=== PATIENT | female | born 1955 | race Caucasian/White ===

== ENCOUNTER 2020-04-15 10:49 | Outpatient (CLI) | payer MEDICARE, BC, SELFPAY ==
--- NOTE | 2020-04-15 10:56 | MM_ITS ---
WS: [id number] DIAGNOSTIC BILATERAL DIGITAL MAMMOGRAM WITH CAD HISTORY: HX OF BREAST CA COMPARISON: 03/17/2019 and 01/08/2018 TECHNIQUE: Bilateral craniocaudad, mediolateral oblique, and mediolateral views are submitted. Comput er aided detection utilized. Breast composition: There are scattered areas of fibroglandular density. Volume loss with architectur al distortion and dystrophic calcifications in the LEFT breast. Corresponds to the area of prior biop sy and therapy treatment. No worsening distortion or increasing soft tissue mass. No suspicious calci fication or mass in the RIGHT breast. MM/[id number] IMPRESSION: BI-RADS: 2-Benign FOLLOW UP: 1 Year Follow-up
== END 2020-04-15 10:50 | disposition home or self-care (01) ==
LOC: RADSHAW 10:54
PROVIDERS: PCP Registered Nurse; Visit Provider Registered Nurse
DX: Z85.3 Personal history of malignant neoplasm of breast (principal)
CPT/HCPCS: 77066

== ENCOUNTER → 2020-05-24 09:36 | Outpatient (BNVA) | payer MEDICARE, BC, SELFPAY | PROVIDERS: PCP Registered Nurse; Visit Provider Registered Nurse | DX: E03.9 Hypothyroidism, unspecified (principal) | CPT/HCPCS: 36415; 80053; 80061; 84443; 85025 ==

== ENCOUNTER → 2020-12-07 09:20 | Outpatient (BNVA) | payer MEDICARE, OTHER, SELFPAY | PROVIDERS: PCP Registered Nurse; Visit Provider Registered Nurse | DX: E03.9 Hypothyroidism, unspecified (principal) | CPT/HCPCS: 84443 ==

== ENCOUNTER 2021-06-14 13:04 | Outpatient (CLI) | payer MEDICARE, OTHER, SELFPAY ==
--- NOTE | 2021-06-14 13:17 | MM_ITS ---
WS: [id number] BILATERAL DIGITAL DIAGNOSTIC MAMMOGRAM MAMMOGRAPHY WITH CAD CLINICAL INFORMATION: HX OF BREAST CA COMPARISON: April 15, 2020 TECHNIQUE: Bilateral CC, MLO, and ML views. FINDINGS: Scattered fibroglandular densities bilaterally. Punctate and dystrophic calcifications. Postoperative changes lumpectomy upper-outer left breast parenchymal fibrosis unchanged from previous. Dense nodul ar parenchymal tissue upper outer right breast stable since 2018. No suspicious focal mass, asymmetry, calcifications, or architectural distortion. No evidence of mildred gnancy. MM/[place] [id number] IMPRESSION: BI-RADS: 2-Benign FOLLOW UP: 1 Year Follow-up Recommend return to annual diagnostic mammography.
== END 2021-06-14 13:05 | disposition home or self-care (01) ==
LOC: RADSHAW 13:11
PROVIDERS: PCP Registered Nurse; Visit Provider Registered Nurse
DX: Z85.3 Personal history of malignant neoplasm of breast (principal)
CPT/HCPCS: 77066

== ENCOUNTER → 2021-09-15 09:16 | Outpatient (BNVA) | payer MEDICARE, OTHER, SELFPAY | PROVIDERS: PCP Registered Nurse; Visit Provider Surgery | DX: Z11.52 Encounter for screening for COVID-19 (principal) | CPT/HCPCS: 87635 ==

== ENCOUNTER 2021-09-20 07:54 | Day surgery (SDC) | payer MEDICARE, OTHER, SELFPAY ==
[2021-09-18 09:55] VITALS: BMI 22.4
[2021-09-20 09:36] VITALS: BP 146/79; PULSE 68; RESP 18; TEMP 36.1; O2SAT 99
--- NOTE | 2021-09-20 09:37 | P.ANESASSM_ITS ---
Pre-Anesthetic Assessment Height/Weight: Height 1.57 m Weight 55.792 kg Preop Diagnosis: diagnostic Operation Date: 09/20/21 09:30 Proposed Procedures p Colonoscopy 70836 Z12.11(Not Applicable) - Adin Moreland MD Familial anesthetic complications: None Was Beta Awa taken within 24 hours: N/A Was Clonidine taken within 24 hours: N/A Social No alcohol and No tobacco Exam alert, oriented x 3, clear to auscultation bilaterally and regular rate & rhythm Airway Submandibular: within normal limits Cervical ROM: within normal limits Mallampati: Class I Dentition: full History/ROS No significant complaints Pulmonary None reported CV/HEM None reported None reported Hepatic None reported GI None reported Metabolic Thyroid Disease Musc/skel None reported Neuropsych None reported Anesthetic Plan ASA status: 1 Other: I discussed with the patient risks, goals, and benefits of MAC and general anesthesia. We discussed spectrum of MAC anesthesia including conversion to general as well as possibility of recall of intraoperative stimuli including discomfort/pain. Patient agrees to proceed with MAC. Risk of > 500 ml blood loss (7ml/kg in children): No Medications/Allergies Home Medications Medication Instructions Recorded Confirmed Last Taken Type levothyroxine 125 mcg capsule 125 mcg PO DAILY #90 cap 12/07/20 09/20/21 09/19/21 Rx fluticasone propionate 50 1 spray INTRANASAL Q12H #16 g 06/25/21 09/20/21 09/06/21 Rx mcg/actuation nasal spray,suspension (Flonase Allergy Relief) Allergies Allergy/AdvReac Type Severity Reaction Status Date / Time No Known Allergies Allergy Verified 06/20/21 13:56 [facility] Anesthesia Medical History Hypothyroidism Social History Smoking and tobacco status: never smoked Alcohol intake: never Adopted: No Caregiver/support person: No Lives independently: No Household members: spouse Marital status: service: No Current occupational status: retired History of recent travel: No Sexually active: Yes Current gender identity: Female Data Anesthesia Cardiac Studies: No Data to Display
[2021-09-20] MEDS: sodium chloride 0.9% 1,000 ML 30 ML IV (09:48)
--- NOTE | 2021-09-20 10:26 | P.HP_ITS ---
Same Day Surgery H&P Indication for Procedure/HPI DATE OF PROCEDURE: September 20, 2021 CHIEF COMPLAINT/INDICATIONFOR SURGICAL PROCEDURE: Screening colonoscopy PREOP DIAGNOSIS: diagnostic PLANNED PROCEDURE: Operation Date: 09/20/21 09:30 Proposed Procedures p Colonoscopy 24402 Z12.11(Not Applicable) - Adin Moreland MD Medications/Allergies* Allergies/Adverse Reactions Allergy/AdvReac Type Severity Reaction Status Date / Time No Known Allergies Allergy Verified 06/20/21 13:56 Current Medications: Generic Name Dose Route Start Last Admin Trade Name Freq PRN Reason Stop Dose Admin Sodium Chloride 1,000 mls @ 30 mls/hr 09/20/21 08:15 09/20/21 09:48 Sodium Chloride 0.9% IV 09/21/21 08:14 30 mls/hr .Q24H YAMILETH Administration Pertinent History/Comorbid Conditions* Medical History (Updated 06/21/21 @ 13:39 by MAT Cervantes) Hypothyroidism Social History Smoking and tobacco status: never smoked Alcohol intake: never Adopted: No Caregiver/support person: No Lives independently: No Household members: spouse Marital status: service: No Current occupational status: retired History of recent travel: No Sexually active: Yes Current gender identity: Female Pertinent Exam Findings alert, oriented x 3 and regular rate & rhythm Recommendations Surgery/Procedure today Coding Level of Care Code Acute [employer] for Tiffani Carey
[2021-09-20 11:02] VITALS: BP 115/75; PULSE 73; RESP 16; TEMP 36.3; O2SAT 96
--- NOTE | 2021-09-20 11:07 | ANE.PACU2 ---
Documented by User: Konstantin Haywood CRNA 09/20/21 11:07 Inpatient post-anesthesia follow up: Airway intact: Yes Vital signs: Temperature 97 F Pulse Rate 68 Respiratory Rate 18 Blood Pressure 146/79 Pulse Oximetry 99 Oxygen Delivery Me thod Room Air Oxygen Flow Rate Fraction of Inspir ed Oxygen Hydration adequate: Yes Nausea and vomiting: No Pain level: 1 Mental status: Baseline
[2021-09-20 11:12] VITALS: BP 124/71; PULSE 65; RESP 20; TEMP 36.3; O2SAT 98
== END 2021-09-20 11:21 | disposition home or self-care (01) ==
PROVIDERS: PCP Registered Nurse; Visit Provider Surgery
PROC: 0DJD8ZZ Inspection of Lower Intestinal Tract, Via Natural or Artificial Opening Endoscopic (ICD-10-PCS; CPT 45378; principal; 2021-09-20 09:30)
DX: Z12.11 Encounter for screening for malignant neoplasm of colon (principal); D12.2 Benign neoplasm of ascending colon; K64.8 Other hemorrhoids; E03.9 Hypothyroidism, unspecified
CPT/HCPCS: 45380; 88305; J2704; J7030

== ENCOUNTER → 2022-01-18 08:34 | Outpatient (BNVA) | payer MEDICARE, OTHER, SELFPAY | PROVIDERS: PCP Registered Nurse; Visit Provider Registered Nurse | DX: E03.9 Hypothyroidism, unspecified (principal); E07.9 Disorder of thyroid, unspecified; R03.0 Elevated blood-pressure reading, without diagnosis of hypertension | CPT/HCPCS: 85025 ==

== ENCOUNTER → 2022-01-23 10:15 | Outpatient (BNVA) | payer MEDICARE, OTHER, SELFPAY | PROVIDERS: PCP Registered Nurse; Visit Provider Registered Nurse | DX: E03.9 Hypothyroidism, unspecified (principal); E07.9 Disorder of thyroid, unspecified | CPT/HCPCS: 80053; 80061; 84443; 85025 ==

== ENCOUNTER 2022-07-09 08:32 | Outpatient (CLI) | payer MEDICARE, OTHER, SELFPAY ==
--- NOTE | 2022-07-09 08:49 | MM_ITS ---
WS: [id number] DIAGNOSTIC BILATERAL DIGITAL BREAST TOMOSYNTHESIS MAMMOGRAPHY WITH CAD HISTORY: Diagnostic annual mammogram, history of breast cancer. COMPARISON: 06/14/2021 and 04/15/2020 TECHNIQUE: Bilateral craniocaudad, mediolateral oblique, and mediolateral views are submitted with to mosynthcharan and SM. Computer aided detection utilized. Breast composition: The breasts are heterogeneously dense, which may obscure small masses. Volume los s and dystrophic calcifications and postsurgical scarring upper outer quadrant of the LEFT breast. MM/[place] [id number] IMPRESSION: BI-RADS: 2-Benign FOLLOW UP: 1 Year Follow-up
== END 2022-07-09 08:33 | disposition home or self-care (01) ==
LOC: RAD 08:32
PROVIDERS: PCP Registered Nurse; Visit Provider Registered Nurse
DX: Z85.3 Personal history of malignant neoplasm of breast (principal)
CPT/HCPCS: 77062; G0279

== ENCOUNTER → 2023-02-18 08:56 | Outpatient (BNVA) | payer MEDICARE, OTHER, SELFPAY | PROVIDERS: PCP Registered Nurse; Visit Provider Registered Nurse | DX: E03.9 Hypothyroidism, unspecified (principal) | CPT/HCPCS: 84443 ==

== ENCOUNTER 2023-04-08 10:35 | Outpatient (CLI) | payer MEDICARE, OTHER, SELFPAY ==
--- NOTE | 2023-04-08 10:48 | XRR_ITS ---
PROCEDURE INFORMATION: Exam: XR Chest Exam date and time: 04/08/2023 10:52 AM Age: 68 years old Clinical indication: Other: Dysphonia; Prior surgery; Surgery date: 6+ months; Patient HX: HX of left breast cancer TECHNIQUE: Imaging protocol: Radiologic exam of the chest. Views: 2 views. COMPARISON: No relevant prior studies available. FINDINGS: Lungs: Unremarkable. No consolidation. Pleural spaces: Unremarkable. No pleural effusion. No pneumothorax. Heart/Mediastinum: Unremarkable. No cardiomegaly. Bones/joints: Unremarkable. XR/XR chest 2V* [id number] IMPRESSION: No acute findings.
== END 2023-04-08 10:36 | disposition home or self-care (01) ==
PROVIDERS: PCP Registered Nurse; Visit Provider Specialist
DX: R49.0 Dysphonia (principal)
CPT/HCPCS: 71046

== ENCOUNTER 2023-05-22 15:00 | Outpatient (CLI) | payer MEDICARE, OTHER, SELFPAY ==
--- NOTE | 2023-05-22 15:05 | MR_ITS ---
WS: [id number] MRI NECK WITH CONTRAST TECHNIQUE: Noncontrast axial T1, axial T2 FSE fat sat, coronal T2 fat sat, coronal T1, coronal T1 fat sat, sagittal T2 fat sat, plus contrast enhanced coronal, sagittal, and axial T1 fat sat images obta ined. CLINICAL INFORMATION: DYSPHONIA/OTHER DZ OF VOCAL CORDS COMPARISON: None. FINDINGS: Mastoid air cells are well aerated. Normal posterior nasopharynx. Parotid glands are normal . Normal submandibular glands. T2 hyperintense lesion within the RIGHT vallecula along the aryepiglot tic fold with a small amount of peripheral enhancement. This may represent a small retention cyst or polyp. This measures approximately 9 mm. Medial rotation of the LEFT arytenoid cartilage with ballooning of the LEFT laryngeal ventricle and p iriform sinus. Recommend correlation for LEFT vocal cord paralysis. Paranasal sinuses are well aerate d. Normal vascular flow voids at the skull base. No cervical lymphadenopathy. Partially visualized spiculated parenchymal opacity or fibrosis in the LEFT upper lobe. Recommend fur ther evaluation with chest CT. This is only partially visualized. Straightening of the normal cervical doses. Mild spondylitic changes cervical spine. Disc osteophyte complexes worse at C5-C6 and C6-C7 with mild central canal stenosis. IMPRESSION: 1. Suspected paralysis of the LEFT vocal cord described above recommend correlation with endoscopy. 2. Small retention cyst or polyp in the RIGHT vallecula along the aryepiglottic fold. 3. Partially visualized fibrosis or spiculated parenchymal lesion in the LEFT upper lobe only partia lly visualized. Recommend further evaluation with chest CT.
[2023-05-22] MEDS: gadobenate dimeglumine 20 mL vial IV (15:42)
== END 2023-05-22 15:01 | disposition home or self-care (01) ==
PROVIDERS: PCP Registered Nurse; Visit Provider Specialist
DX: R49.0 Dysphonia (principal); J38.3 Other diseases of vocal cords
CPT/HCPCS: 70543; A9577

== ENCOUNTER → 2023-05-23 08:55 | Outpatient (BNVA) | payer MEDICARE, OTHER, SELFPAY | PROVIDERS: PCP Registered Nurse; Visit Provider Registered Nurse | DX: E03.9 Hypothyroidism, unspecified (principal) | CPT/HCPCS: 84443 ==

== ENCOUNTER 2023-06-21 07:11 | Outpatient (CLI) | payer MEDICARE, OTHER, SELFPAY ==
--- NOTE | 2023-06-21 07:24 | CT_ITS ---
WS: [id number] CT chest w con* [id number] HISTORY: Other nonspecific abnormal finding of lung field TECHNIQUE: Axial imaging performed through the thorax. Coronal and sagittal reformats are submitted. All CT scans at [facility] use at least one of these dose optimization techniques: automated exposure control; mA and/or kV adjustment per patient size (includes targeted exams where dose is mat ched to clinical indication); or iterative reconstruction. CONTRAST: Omnipaque 350; 100 mL IV. DLP: 216.47 mGy.cm COMPARISON: No similar studies. Lungs and central airway: Mildly hyperinflated lungs. Spiculated nodule in the anterior LEFT upper lo be measures 1.4 x 1.1 cm. Is additional tethering and stranding extending towards the anterior pleura and bronchiectasis. There is an additional nodule in the LEFT upper lobe posteriorly measuring 0.6 c m with adjacent satellite lesions. No additional mass or pneumonia. Pleura: Normal. No pleural effusion. Heart and pericardium: Normal size heart with no pericardial effusion. Mediastinum and luz marina: Mediastinal and hilar lymphadenopathy is identified. There is a large cluster o f lymph nodes centered at the aortopulmonary window measuring 3.2 x 4.0 cm. Cluster of lymph nodes ex tends to about the trachea and also does appear to mildly extend into the adjacent lung. RIGHT paratr acheal lymphadenopathy. The largest along the inferior RIGHT paratracheal region measures 1.8 x 1.3 c m. Subcarinal lymphadenopathy 2.0 x 3.4 cm. Smaller 1 cm lymph node at the LEFT hilum. Vessels: Very mild atherosclerosis aorta. The pulmonary artery is normal size. Chest wall and lower neck: No soft tissue masses. Upper abdomen: Calcified granuloma LEFT hepatic lobe. There are a few scattered low-attenuation josselyn s within the liver. These are probably cysts. The entire liver is not imaged. The gallbladder is nega tive. Normal size spleen. Normal RIGHT adrenal gland. In the region of the LEFT adrenal gland there i s a soft tissue mass measuring 4.1 x 2.4 cm. There is a central calcification or enhancing artery. Th is mass abuts a small portion of the RIGHT kidney. The pancreas is mildly atrophied. The pancreatic duct is prominent. The entire pancreatic head and un cinate process are not included. Osseous structures: No destructive process. IMPRESSION: 1. LEFT upper lobe irregular nodules. The largest nodule in the anterior apex measures 1.4 x 1.1 cm w ith adjacent tethering to the pleura. There is a smaller nodule in the posterior LEFT upper lobe mami uring 0.6 cm with a satellite lesion. These are suspicious for neoplasm but also may be areas of scar formation. PET/CT imaging recommended. 2. There is significant mediastinal and hilar lymphadenopathy. The largest cluster of lymph nodes at the aortopulmonary window measuring 3.2 x 4.0 cm. Additional enlarged and abnormal lymph nodes in the paratracheal, subcarinal and LEFT hilar region. 3. Soft tissue mass in the expected location of the LEFT adrenal gland. The LEFT adrenal gland is not identified as a separate structure. Mass measures 4.1 x 2.4 cm. There may be an associated central c alcification. Differential includes metastatic disease to the adrenal gland or a primary adrenal carc inoma. This may be a separate cluster of lymph nodes from the adrenal gland. Recommend PET/CT imaging . CT abdomen and pelvis with IV and oral contrast would also be helpful to define the extent of the d isease. 4. Low-attenuation masses within the liver. Cysts versus metastatic lesions.
[2023-06-21 07:58] LABS: Blood Urea Nitrogen 14 mg/dL (8-23)
[2023-06-21] MEDS: iohexol 350 mg/mL 500 mL Btl (per mL) IV (08:02)
== END 2023-06-21 07:12 | disposition home or self-care (01) ==
LOC: RAD 07:11
PROVIDERS: PCP Registered Nurse; Visit Provider Specialist
DX: R91.8 Other nonspecific abnormal finding of lung field (principal); R59.0 Localized enlarged lymph nodes; E27.9 Disorder of adrenal gland, unspecified; R16.0 Hepatomegaly, not elsewhere classified
CPT/HCPCS: 71260; 82565; 84520; Q9967

== ENCOUNTER → 2023-11-19 09:47 | Outpatient (BNVA) | payer MEDICARE, OTHER, SELFPAY | PROVIDERS: PCP Registered Nurse; Visit Provider Registered Nurse | DX: E07.9 Disorder of thyroid, unspecified (principal); E03.9 Hypothyroidism, unspecified | CPT/HCPCS: 84443 ==